=== PATIENT | male | born 1970 | race American Indian/Alaskan Native ===

== ENCOUNTER 2017-01-04 10:48 | Emergency (ER) | payer MEDICAID ==
--- NOTE | 2017-01-04 11:36 | Emergency Department Report ---
Chief Complaint: Eye Problems Stated Complaint: EYE INFECTION Time Seen by Provider: 01/04/17 11:36 - HPI History of Present Illness: Patient reports that he has been having eye pain and irritation times one week with drainage. He reports pain is 10 out of 10 and throbbing. Denies any trauma tonight. Denies any use of contacts. Denies remembering any thing get any in his eyes. He says that he is having some difficult seeing and this is to his left thigh and now going to his right eye. Patient states that he thinks he has eye infection. - ROS Review of Systems: All systems are negative unless stated in HPI above - Exam Vital Signs: Vital Signs 01/04/17 11:22 Temperature 98 F Pulse Rate 83 Blood Pressure 145/94 O2 Sat by Pulse 99 Oximetry Respirations at 17 Physical Exam: Gen.: This is a 46-year-old male well-nourished well-developed in no acute distress. Eyes: Visual acuity is 20/30 right eye, 20/70 left eye and 2070 both eyes. Bilateral conjunctiva injected left forced and right. Bilateral pupils equal and reactive to light. Noted drainage from both eyes. Left eye is worse than right eye. Hyperema noted to left eye. MSE screening note: Focused history and physical exam performed. Due to findings the following was ordered:See MDM ED Medical Decision Making - Medical Decision Making MDM: Patient screened by provider in triage area. Appropriate protocol initiated and patient to be seen in main ED provider ED Disposition for MSE Condition: Stable
[2017-01-04 13:14] LABS: Alanine Aminotransferase 24 units/L (7-56); Albumin 4.2 g/dL (3.9-5); Albumin/Globulin Ratio 1.3 %; Alkaline Phosphatase 70 units/L (35-129); Anion Gap 15 mmol/L; BUN/Creatinine Ratio 8; Blood Urea Nitrogen 7 mg/dL (9-20); Calcium 9.1 mg/dL (8.4-10.2); Carbon Dioxide 26 mmol/L (22-30); Chloride 105.2 mmol/L (98-107); Glucose 97 mg/dL (75-100); Potassium 4.4 mmol/L (3.6-5.0); Sodium 142 mmol/L (137-145); Total Protein 7.4 g/dL (6.3-8.2)
[2017-01-04 13:28] LABS: Basophils % (Auto) 0.6 % (0.0-1.8); Eosinophils % (Auto) 0.8 % (0.0-4.3); Hematocrit 43.1 % (35.5-45.6); Hemoglobin 14.1 gm/dl (11.8-15.2); Mean Corpuscular HGB Conc 33 % (32-34); Mean Corpuscular Hemoglobin 28 pg (28-32); Mean Corpuscular Volume 87 fl (84-94); Platelet Count 222 K/mm3 (140-440); Red Blood Count 4.97 M/mm3 (3.65-5.03); Red Cell Distribution Width 13.8 % (13.2-15.2); White Blood Count 3.5 K/mm3 (4.5-11.0)
[2017-01-04] MEDS ORDERED: FUL-GLO OP ONE ×2 (13:39→14:19)
[2017-01-04] MEDS ORDERED: TETRACAINE 0.5% OU ONE (13:39)
--- NOTE | 2017-01-04 13:40 | Emergency Department Report ---
ED Eye Problem HPI - General Chief complaint: Eye Problems Stated complaint: EYE INFECTION Time Seen by Provider: 01/04/17 11:36 Source: patient Mode of arrival: Ambulatory Limitations: No Limitations - History of Present Illness Initial comments: 46-year-old male with past medical history pots disease, hypertension presents with 1 week of worsening redness and inflammation bilateral eyes worsen the left than the right. States he has significant drainage and significant blurry vision from both eyes but worse on the left than right. Patient has visible purulent drainage and swelling around left eye. Left eye significantly red, swollen and patient states he has had greenish yellowish discharge worse in left and right. Denies nausea vomiting. Positive photophobia bilaterally. Patient is awake alert and oriented 3 appears uncomfortable but nontoxic otherwise. Denies any direct trauma to the eye. MD chief complaint: eye pain, eye redness Onset/Timin -: week(s) Location: left eye (left eye signficantly inflamed), both eyes Eye Symptoms: burning, redness, pain Severity: moderate Severity scale (0 -10): 7 If Pain, Quality: burning, aching Consistency: constant Associated Symptoms: none Treatments Prior to Arrival: none - Related Data Patient Tetanus UTD: No Home Medications Medication Instructions Recorded Confirmed Last Taken Albuterol Sulfate [Ventolin HFA] 2 puff IH Q4H PRN 03/12/15 02/06/16 3 Days Ago Benztropine [Cogentin] 2 mg PO BID 03/12/15 02/06/16 1 Month Ago Haloperidol Lactate [Haldol] 100 mg IM QMONTH 03/12/15 02/06/16 02/08/15 Oxycodone HCl/Acetaminophen 1 each PO Q4HR PRN 03/12/15 02/06/16 3 Weeks Ago [Percocet 10/325 mg] Previous Rx's Medication Instructions Recorded Last Taken Type ALBUTEROL Inhaler [ProAir HFA 2 puff IH QID PRN #1 inhalation 02/06/16 Unknown Rx Inhaler] Acetaminophen/Codeine [Tylenol #3] 1 tab PO Q8HR PRN #10 tab 02/15/16 Unknown Rx amLODIPine [Norvasc] 10 mg PO DAILY #30 tab 02/15/16 Unknown Rx Allergies Allergy/AdvReac Type Severity Reaction Status Date / Time aspirin Allergy Swelling Verified 02/06/16 09:30 Penicillins Allergy Swelling Verified 02/06/16 09:30 ED Review of Systems ROS: Stated complaint: EYE INFECTION Other details as noted in HPI Constitutional: denies: chills, fever Eyes: eye pain (1 week of blurry vision bilateral eye pain and swelling of left eye), eye discharge, vision change ENT: denies: ear pain, throat pain Respiratory: denies: cough, shortness of breath, wheezing Cardiovascular: denies: chest pain, palpitations Endocrine: no symptoms reported Gastrointestinal: denies: abdominal pain, nausea, diarrhea Genitourinary: denies: urgency, dysuria Musculoskeletal: denies: back pain, joint swelling, arthralgia Skin: denies: rash, lesions Neurological: denies: headache, weakness, paresthesias Psychiatric: denies: anxiety, depression Hematological/Lymphatic: denies: easy bleeding, easy bruising ED Past Medical Hx - Past Medical History Hx Hypertension: Yes Hx Psychiatric Treatment: Yes (bipolar) Hx Asthma: Yes Additional medical history: TB. spinal abcess. SAHNI DISEASE - Surgical History Additional Surgical History: chest tube. drain placed for spinal abcess - Social History Smoking Status: Current Every Day Smoker Substance Use Type: None - Medications Home Medications: Home Medications Medication Instructions Recorded Confirmed Last Taken Type Albuterol Sulfate [Ventolin HFA] 2 puff IH Q4H PRN 03/12/15 02/06/16 3 Days Ago History Benztropine [Cogentin] 2 mg PO BID 03/12/15 02/06/16 1 Month Ago History Haloperidol Lactate [Haldol] 100 mg IM QMONTH 03/12/15 02/06/16 02/08/15 History Oxycodone HCl/Acetaminophen 1 each PO Q4HR PRN 03/12/15 02/06/16 3 Weeks Ago History [Percocet 10/325 mg] ALBUTEROL Inhaler [ProAir HFA 2 puff IH QID PRN #1 inhalation 02/06/16 Unknown Rx Inhaler] Acetaminophen/Codeine [Tylenol #3] 1 tab PO Q8HR PRN #10 tab 02/15/16 Unknown Rx amLODIPine [Norvasc] 10 mg PO DAILY #30 tab 02/15/16 Unknown Rx ED Physical Exam - General Limitations: No Limitations General appearance: alert, in no apparent distress - Head Head exam: Present: atraumatic, normocephalic - Eye Eye exam: Present: periorbital swelling (left periorbital swelling, left periorbital tenderness) Pupils: Present: irregular - Expanded Eye Exam Expanded Eyelids: Swelling: Left Pupils: Regular, Round: Right Sclera/Conjunctival: Injection: Bilateral (it and injection of left conjunctiva) , Hemorrhage: Bilateral (significant chemosis and injection of the left eye slight on the right), Exudate: Bilateral (significant yellow purulent exudates both eyes) Anterior chamber: Normal Inspection: Bilateral Visual acuity (R) = 20/: 40 Visual acuity (L) = 20/: 200 IOP (R) in mmH IOP (L) in mmH IOP measured with: Tonopen - ENT ENT exam: Present: mucous membranes moist - Neck Neck exam: Present: normal inspection, full ROM - Respiratory Respiratory exam: Present: normal lung sounds bilaterally. Absent: respiratory distress - Cardiovascular Cardiovascular Exam: Present: regular rate, normal rhythm. Absent: systolic murmur, diastolic murmur, rubs, gallop - GI/Abdominal GI/Abdominal exam: Present: soft, normal bowel sounds - Rectal Rectal exam: Present: deferred - Extremities Exam Extremities exam: Present: normal inspection - Back Exam Back exam: Present: normal inspection - Neurological Exam Neurological exam: Present: alert, oriented X3 - Psychiatric Psychiatric exam: Present: normal affect, normal mood - Skin Skin exam: Present: warm, dry, intact, normal color. Absent: rash ED Course Vital Signs 01/04/17 01/04/17 01/04/17 11:22 18:46 19:17 Temperature 98 F Pulse Rate 83 72 Respiratory 20 20 Rate Blood Pressure 145/94 Blood Pressure 130/97 [Right] O2 Sat by Pulse 99 100 Oximetry ED Medical Decision Making - Lab Data Result diagrams: 01/04/17 12:40 01/04/17 12:40 - Medical Decision Making A/P: Severe preseptal cellulitis left eye 1-patient treated empirically with clindamycin 900 mg IV 2-discussed case with ophthalmology consultation avionics electrical engineer , patient to be transferred for emergent ophthalmological evaluation as his vision is significantly impaired in his left eye 3-Dr. Bourne also examined pt 4- intraocular pressure 15 ,15,16 right eye, 17 ,17,15 left eye. Vision 20/40 right eye, 20/200 left eye, 20/70 bilaterally 5- patient transferred to [place] for ophthalmology evaluation via EMS Critical care attestation.: If time is entered above; I have spent that time in minutes in the direct care of this critically ill patient, excluding procedure time. ED Disposition Clinical Impression: Preseptal cellulitis of left eye, Blurry vision, bilateral Conjunctivitis Qualifiers: Conjunctivitis type: acute Acute conjunctivitis type: bacterial Laterality: bilateral Qualified Code(s): H10.33 - Unspecified acute conjunctivitis, bilateral Disposition: DC/TX-70 ANOTHER TYPE HLTHCARE Is pt being admited?: No Does the pt Need Aspirin: No Condition: Stable Referrals: PRIMARY CARE, [Primary Care Provider] - 3-5 Days
[2017-01-04 13:43] LABS: INR 1.04 (0.87-1.13)
[2017-01-04 13:49] LABS: Partial Thromboplastin Time 30.5 Sec. (24.2-36.6)
[2017-01-04] MEDS ORDERED: BSS ONE (14:20)
[2017-01-04] MEDS ORDERED: TETRACAINE 0.5% ONE (14:20)
[2017-01-04] MEDS ORDERED: NACL 0.9% 500 ML 500 ML IV ONE (14:43)
[2017-01-04] MEDS ORDERED: MORPHINE IV ONE (14:44)
[2017-01-04] MEDS ORDERED: ZOFRAN ODT PO ONE (16:41)
[2017-01-04] MEDS ORDERED: CLEOCIN 900 MG/50 mL 900 MG/50 ML BAG IV ONE (17:00)
--- NOTE | 2017-01-04 17:32 | Cat Scan Report ---
FINAL REPORT EXAM: CT ORBIT/EAR/FOSSA W CON HISTORY: ? L-side orbital abscess, significant eye swelling TECHNIQUE: Serial axial images through the orbits during intravenous administration of 100 milliliters Omni 300 contrast with coronal and sagittal reconstruction PRIORS: None. FINDINGS: Hypodense foci are seen in the periventricular white matter of right cerebral hemisphere. Lateral ventricles are normal in size and configuration. Focal polypoid mucosal thickening is seen in the maxillary sinuses. The paranasal sinuses and mastoid air cells otherwise appear well aerated. Sequelae from prior left nasal bone fracture are noted. There is soft tissue swelling in the left periorbital region with stranding in the subcutaneous fat. No inflammatory changes or drainable fluid collections are seen in the postseptal soft tissues of the left orbit. IMPRESSION: 1. No drainable fluid collection is identified to definitely suggest abscess at this time. Asymmetric soft tissue swelling is seen in the left periorbital region with inflammatory changes, consistent with preseptal cellulitis. No inflammatory changes are seen in the postseptal soft tissues of the left orbit at this time.
[2017-01-04 19:18] VITALS: BP 130/97
== END 2017-01-04 19:30 | disposition other institution (70) ==
LOC: ED 10:48
DX: L03.213 Periorbital cellulitis (principal); H53.8 Other visual disturbances; I10 Essential (primary) hypertension; J45.909 Unspecified asthma, uncomplicated; F31.9 Bipolar disorder, unspecified
CPT/HCPCS: 36415; 70481; 80053; 82140; 85025; 85610; 85730; 96365; 96375; 99285; J2270; J7040; Q9967; Q0162

== ENCOUNTER 2020-09-15 05:37 | Emergency (ER) | payer MEDICAID, OTHER, SELFPAY ==
[2020-09-15 07:45] LABS: Basophils # (Auto) 0.1 K/mm3 (0.0-0.1); Basophils % (Auto) 1.5 % (0.0-1.8); Eosinophils % (Auto) 0.2 % (0.0-4.3); Hematocrit 41.6 % (35.5-45.6); Lymphocytes # (Auto) 1.4 K/mm3 (1.2-5.4); Lymphocytes % (Auto) 27.3 % (13.4-35.0); Mean Corpuscular HGB Conc 34 % (32-34); Mean Corpuscular Volume 88 fl (84-94); Monocytes # (Auto) 0.4 K/mm3 (0.0-0.8); Monocytes % (Auto) 8.1 % (0.0-7.3); Platelet Count 294 K/mm3 (140-440); Red Blood Count 4.71 M/mm3 (3.65-5.03)
[2020-09-15 08:11] LABS: BUN/Creatinine Ratio 10; Blood Urea Nitrogen 9 mg/dL (9-20); Calcium 8.7 mg/dL (8.4-10.2); Hemolysis Index 4
[2020-09-15 08:32] LABS: Bilirubin,Urine NEG (Negative); Blood,Urine NEG (Negative); Color,Urine Yellow (Yellow); Mucus,Urine FEW /HPF; Protein,Urine <15 mg/dL mg/dL (Negative); Urobilinogen,Urine < 2.0 mg/dL (<2.0)
[2020-09-15 08:33] LABS: Amphetamine Screen,Urine Negative; Benzodiazepines Screen,Urine Negative; Cannabinoid Screen,Urine Negative; Methadone Screen,Urine Negative; Opiate Screen,Urine Negative
[2020-09-15 08:46] LABS: Cocaine Screen,Urine Positive
--- NOTE | 2020-09-15 08:50 | Emergency Department Report ---
HPI - General Chief Complaint: Psych Time Seen by Provider: 09/15/20 08:15 - HPI HPI: This is a 49-year-old -[place] male, with a history of schizoaffective disorder and hypertension, who presents to the emergency department for a mental health evaluation. The patient says that "people are trying to kill me." He says that he sees them in the room, and "in the ceiling." The patient also has auditory hallucinations that are telling him to "kill myself." The patient does admit to some suicidal ideations. He says that he has been noncompliant with any medication since he got out of [facility] this past March, about 6 months ago. He denies any homicidal ideations. The patient is unaware of what medications he was previously on. He does not have a primary care physician or psychiatrist. ED Past Medical Hx - Past Medical History Hx Hypertension: Yes Hx Psychiatric Treatment: Yes (bipolar) Hx Asthma: Yes Additional medical history: TB. spinal abcess. SAHNI DISEASE - Surgical History Additional Surgical History: chest tube. drain placed for spinal abcess - Social History Smoking Status: Current Every Day Smoker Substance Use Type: Alcohol, Cocaine - Medications Home Medications: Home Medications Medication Instructions Recorded Confirmed Last Taken Type Albuterol Sulfate [Ventolin HFA] 2 puff IH Q4H PRN 03/12/15 02/06/16 3 Days Ago History ~03/09/15 Benztropine [Cogentin] 2 mg PO BID 03/12/15 02/06/16 1 Month Ago History ~02/10/15 Haloperidol Lactate [Haldol] 100 mg IM QMONTH 03/12/15 02/06/16 02/08/15 History Oxycodone HCl/Acetaminophen 1 each PO Q4HR PRN 03/12/15 02/06/16 3 Weeks Ago History [Percocet 10/325 mg] ~02/19/15 Albuterol Mdi (or & Nicu Only) 2 puff IH QID PRN #1 inhalation 02/06/16 Unknown Rx [ProAir HFA Inhaler] Acetaminophen/Codeine [Tylenol #3] 1 tab PO Q8HR PRN #10 tab 02/15/16 Unknown Rx amLODIPine [Norvasc] 10 mg PO DAILY #30 tab 02/15/16 Unknown Rx ED Review of Systems ROS: Stated complaint: HEARING VOICES Other details as noted in HPI Comment: All other systems reviewed and negative Constitutional: denies: chills, fever Eyes: denies: eye pain, vision change ENT: denies: ear pain, throat pain Respiratory: denies: cough, shortness of breath Cardiovascular: denies: chest pain, palpitations Gastrointestinal: denies: abdominal pain, vomiting Musculoskeletal: denies: back pain, arthralgia Neurological: denies: headache, weakness Psychiatric: auditory hallucinations, visual hallucinations, suicidal thoughts Physical Exam - Physical Exam Vital Signs: Vital Signs 09/15/20 07:19 Temperature 98.2 F Pulse Rate 100 H Respiratory 20 Rate Blood Pressure 193/109 O2 Sat by Pulse 97 Oximetry Physical Exam: GENERAL: The patient is well-developed well-nourished. HENT: Normocephalic. Atraumatic. Patient has moist mucous membranes. EYES: Extraocular motions are intact. NECK: Supple. Trachea is midline. CHEST/LUNGS: Clear to auscultation. There is no respiratory distress noted. HEART/CARDIOVASCULAR: Regular. There is no tachycardia. There is no murmur. ABDOMEN: Abdomen is soft, nontender. Patient has normal bowel sounds. SKIN: Skin is warm and dry. NEURO: The patient is awake, alert, and oriented. The patient is cooperative. Normal speech. MUSCULOSKELETAL: There is no tenderness or deformity. There is no limitation range of motion. ED Course Vital Signs 09/15/20 07:19 Temperature 98.2 F Pulse Rate 100 H Respiratory 20 Rate Blood Pressure 193/109 O2 Sat by Pulse 97 Oximetry ED Medical Decision Making - Lab Data Result diagrams: 09/15/20 07:41 09/15/20 07:41 Lab Results 09/15/20 09/15/20 09/15/20 Range/Units 07:41 07:41 07:41 WBC (4.5-11.0) K/mm3 RBC (3.65-5.03) M/mm3 Hgb (11.8-15.2) gm/dl Hct (35.5-45.6) % MCV (84-94) fl MCH (28-32) pg MCHC (32-34) % RDW (13.2-15.2) % Plt Count (140-440) K/mm3 Lymph % (Auto) (13.4-35.0) % [place] % (Auto) (0.0-7.3) % Eos % (Auto) (0.0-4.3) % Baso % (Auto) (0.0-1.8) % Lymph # (Auto) (1.2-5.4) K/mm3 [place] # (Auto) (0.0-0.8) K/mm3 Eos # (Auto) (0.0-0.4) K/mm3 Baso # (Auto) (0.0-0.1) K/mm3 Seg Neutrophils % (40.0-70.0) % Seg Neutrophils # (1.8-7.7) K/mm3 Sodium 139 (137-145) mmol/L Potassium 3.5 L (3.6-5.0) mmol/L Chloride 103.5 (98-107) mmol/L Carbon Dioxide 22 (22-30) mmol/L Anion Gap 17 mmol/L BUN 9 (9-20) mg/dL Creatinine 0.9 (0.8-1.3) mg/dL Estimated GFR > 60 ml/min BUN/Creatinine Ratio 10 % Glucose 102 H (75-100) mg/dL Calcium 8.7 (8.4-10.2) mg/dL Urine Color (Yellow) Urine Turbidity (Clear) Urine pH (5.0-7.0) Ur Specific [place] (1.003-1.030) Urine Protein (Negative) mg/dL Urine Glucose (UA) (Negative) mg/dL Urine Ketones (Negative) mg/dL Urine Blood (Negative) Urine Nitrite (Negative) Urine Bilirubin (Negative) Urine Urobilinogen (<2.0) mg/dL Ur Leukocyte Esterase (Negative) Urine WBC (Auto) (0.0-6.0) /HPF Urine RBC (Auto) (0.0-6.0) /HPF U Epithel Cells (Auto) (0-13.0) /HPF Urine Mucus /HPF Salicylates < 0.3 L (2.8-20.0) mg/dL Urine Opiates Screen Urine Methadone Screen Acetaminophen 5.0 L (10.0-30.0) ug/mL Ur Barbiturates Screen Ur Phencyclidine Scrn Ur Amphetamines Screen U Benzodiazepines Scrn Urine Cocaine Screen U Marijuana (THC) Screen Drugs of Abuse Note Plasma/Serum Alcohol (0-0.07) % 06/13/21 06/13/21 06/13/21 Range/Units 07:41 07:41 Unknown WBC 5.0 (4.5-11.0) K/mm3 RBC 4.71 (3.65-5.03) M/mm3 Hgb 14.0 (11.8-15.2) gm/dl Hct 41.6 (35.5-45.6) % MCV 88 (84-94) fl MCH 30 (28-32) pg MCHC 34 (32-34) % RDW 14.0 (13.2-15.2) % Plt Count 294 (140-440) K/mm3 Lymph % (Auto) 27.3 (13.4-35.0) % [place] % (Auto) 8.1 H (0.0-7.3) % Eos % (Auto) 0.2 (0.0-4.3) % Baso % (Auto) 1.5 (0.0-1.8) % Lymph # (Auto) 1.4 (1.2-5.4) K/mm3 [place] # (Auto) 0.4 (0.0-0.8) K/mm3 Eos # (Auto) 0.0 (0.0-0.4) K/mm3 Baso # (Auto) 0.1 (0.0-0.1) K/mm3 Seg Neutrophils % 62.9 (40.0-70.0) % Seg Neutrophils # 3.2 (1.8-7.7) K/mm3 Sodium (137-145) mmol/L Potassium (3.6-5.0) mmol/L Chloride (98-107) mmol/L Carbon Dioxide (22-30) mmol/L Anion Gap mmol/L BUN (9-20) mg/dL Creatinine (0.8-1.3) mg/dL Estimated GFR ml/min BUN/Creatinine Ratio % Glucose (75-100) mg/dL Calcium (8.4-10.2) mg/dL Urine Color Yellow (Yellow) Urine Turbidity Slightly-cloudy (Clear) Urine pH 5.0 (5.0-7.0) Ur Specific [place] 1.011 (1.003-1.030) Urine Protein <15 mg/dl (Negative) mg/dL Urine Glucose (UA) Neg (Negative) mg/dL Urine Ketones Neg (Negative) mg/dL Urine Blood Neg (Negative) Urine Nitrite Neg (Negative) Urine Bilirubin Neg (Negative) Urine Urobilinogen < 2.0 (<2.0) mg/dL Ur Leukocyte Esterase Neg (Negative) Urine WBC (Auto) 1.0 (0.0-6.0) /HPF Urine RBC (Auto) 1.0 (0.0-6.0) /HPF U Epithel Cells (Auto) < 1.0 (0-13.0) /HPF Urine Mucus Few /HPF Salicylates (2.8-20.0) mg/dL Urine Opiates Screen Urine Methadone Screen Acetaminophen (10.0-30.0) ug/mL Ur Barbiturates Screen Ur Phencyclidine Scrn Ur Amphetamines Screen U Benzodiazepines Scrn Urine Cocaine Screen U Marijuana (THC) Screen Drugs of Abuse Note Plasma/Serum Alcohol 0.15 H (0-0.07) % 09/15/20 Range/Units Unknown WBC (4.5-11.0) K/mm3 RBC (3.65-5.03) M/mm3 Hgb (11.8-15.2) gm/dl Hct (35.5-45.6) % MCV (84-94) fl MCH (28-32) pg MCHC (32-34) % RDW (13.2-15.2) % Plt Count (140-440) K/mm3 Lymph % (Auto) (13.4-35.0) % [place] % (Auto) (0.0-7.3) % Eos % (Auto) (0.0-4.3) % Baso % (Auto) (0.0-1.8) % Lymph # (Auto) (1.2-5.4) K/mm3 [place] # (Auto) (0.0-0.8) K/mm3 Eos # (Auto) (0.0-0.4) K/mm3 Baso # (Auto) (0.0-0.1) K/mm3 Seg Neutrophils % (40.0-70.0) % Seg Neutrophils # (1.8-7.7) K/mm3 Sodium (137-145) mmol/L Potassium (3.6-5.0) mmol/L Chloride (98-107) mmol/L Carbon Dioxide (22-30) mmol/L Anion Gap mmol/L BUN (9-20) mg/dL Creatinine (0.8-1.3) mg/dL Estimated GFR ml/min BUN/Creatinine Ratio % Glucose (75-100) mg/dL Calcium (8.4-10.2) mg/dL Urine Color (Yellow) Urine Turbidity (Clear) Urine pH (5.0-7.0) Ur Specific [place] (1.003-1.030) Urine Protein (Negative) mg/dL Urine Glucose (UA) (Negative) mg/dL Urine Ketones (Negative) mg/dL Urine Blood (Negative) Urine Nitrite (Negative) Urine Bilirubin (Negative) Urine Urobilinogen (<2.0) mg/dL Ur Leukocyte Esterase (Negative) Urine WBC (Auto) (0.0-6.0) /HPF Urine RBC (Auto) (0.0-6.0) /HPF U Epithel Cells (Auto) (0-13.0) /HPF Urine Mucus /HPF Salicylates (2.8-20.0) mg/dL Urine Opiates Screen Negative Urine Methadone Screen Negative Acetaminophen (10.0-30.0) ug/mL Ur Barbiturates Screen Negative Ur Phencyclidine Scrn Negative Ur Amphetamines Screen Negative U Benzodiazepines Scrn Negative Urine Cocaine Screen Positive U Marijuana (THC) Screen Negative Drugs of Abuse Note Disclamer Plasma/Serum Alcohol (0-0.07) % - Medical Decision Making This patient presents to the emergency department for a mental health evaluation. He has been having paranoid delusions, command hallucinations and some suicidal ideations. For these reasons the patient has been made a 1013 and placed on an ED hold. Labs have been mostly unremarkable except for a blood alcohol level of 0.14 and a urine drug screen positive for cocaine. He does not appear acutely intoxicated. Patient presents with some hypertension for which she has a history. He was given a dose of amlodipine. He does not know any medications that he is on and therefore I am unable to reconcile the medications at this time. He was seen by the psychiatric nurse practitioner who agrees with the plan for inpatient stabilization. Patient is medically cleared for psychiatric placement. Critical Care Time: No Critical care attestation.: If time is entered above; I have spent that time in minutes in the direct care of this critically ill patient, excluding procedure time. ED Disposition Clinical Impression: Medical clearance for psychiatric admission, History of command hallucinations, Suicidal ideations, Paranoid delusion Hypertension Qualifiers: Hypertension type: essential hypertension Qualified Code(s): I10 - Essential ( primary) hypertension Schizoaffective disorder Qualifiers: Schizoaffective disorder type: unspecified Qualified Code(s): F25.9 - Schizoaffective disorder, unspecified Disposition: DC/TX-65 PSY HOSP/PSY UNIT Is pt being admited?: No Condition: Stable Instructions: Hypertension (ED) Time of Disposition: 11:14
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
[2020-09-15] MEDS ORDERED: amLODIPine 5 MG TAB PO ONE (11:09)
[2020-09-16] MEDS ORDERED: HALOPERIDOL LACTATE 5 MG/1 ML INJ IM PRN (10:42)
[2020-09-16] MEDS ORDERED: diphenhydrAMINE 25 MG CAP PO PRN (10:42)
[2020-09-16] MEDS ORDERED: LORazepam 2 MG/ML VIAL IM PRN (10:42)
[2020-09-16] MEDS ORDERED: ALBUTEROL 8.5 GM MDI INHALATION IH PRN ×2 (10:42)
[2020-09-16] MEDS ORDERED: ONDANSETRON 4 MG ODT TAB PO PRN (10:43)
--- NOTE | 2020-09-16 10:45 | Event Note ---
Date: 09/16/20 The patient was evaluated in the emergency department for symptoms described in the history of present illness. He/she was evaluated in the context of the global COVID-19 pandemic, which necessitated consideration that the patient might be at risk for infection with the virus that causes COVID-19. Institutional protocols and algorithms that pertain to the evaluation of patients at risk for COVID-19 are in a state of rapid change based on information released by regulatory bodies including the CDC and federal and state organizations. These policies and algorithms were followed during the patient's care in the emergency department. Please note that these policies, procedures and recommendations changed on a rapid basis. Patient resting comfortably in stretcher, and in no acute distress. Appears that he was medically cleared on his initial ER evaluation. Laboratory studies, radiology studies, initial ER documentation reviewed and appreciated, nursing documentation reviewed and appreciated, psychiatric recommendations reviewed and appreciated nursing team endorses no acute events this morning. Patient does not appear to have an immediate medical contraindication at this time that would preclude psychiatric evaluation, consultation, placement and disposition. Vital Signs 09/15/20 09/15/20 09/15/20 07:19 09:13 19:58 Temperature 98.2 F 97.7 F 98.7 F Pulse Rate 100 H 93 H 82 Respiratory 20 20 20 Rate Blood Pressure 193/109 155/89 Blood Pressure 165/94 [Right] O2 Sat by Pulse 97 97 97 Oximetry 09/15/20 09/16/20 09/16/20 20:31 02:29 08:36 Temperature 98.3 F 98.1 F 98.2 F Pulse Rate 62 66 74 Respiratory 16 16 18 Rate Blood Pressure Blood Pressure 154/98 145/82 153/71 [Right] O2 Sat by Pulse 100 100 99 Oximetry Lab Results 09/15/20 09/15/20 09/15/20 Range/Units 07:41 07:41 07:41 WBC (4.5-11.0) K/mm3 RBC (3.65-5.03) M/mm3 Hgb (11.8-15.2) gm/dl Hct (35.5-45.6) % MCV (84-94) fl MCH (28-32) pg MCHC (32-34) % RDW (13.2-15.2) % Plt Count (140-440) K/mm3 Lymph % (Auto) (13.4-35.0) % [place] % (Auto) (0.0-7.3) % Eos % (Auto) (0.0-4.3) % Baso % (Auto) (0.0-1.8) % Lymph # (Auto) (1.2-5.4) K/mm3 [place] # (Auto) (0.0-0.8) K/mm3 Eos # (Auto) (0.0-0.4) K/mm3 Baso # (Auto) (0.0-0.1) K/mm3 Seg Neutrophils % (40.0-70.0) % Seg Neutrophils # (1.8-7.7) K/mm3 Sodium 139 (137-145) mmol/L Potassium 3.5 L (3.6-5.0) mmol/L Chloride 103.5 (98-107) mmol/L Carbon Dioxide 22 (22-30) mmol/L Anion Gap 17 mmol/L BUN 9 (9-20) mg/dL Creatinine 0.9 (0.8-1.3) mg/dL Estimated GFR > 60 ml/min BUN/Creatinine Ratio 10 % Glucose 102 H (75-100) mg/dL Calcium 8.7 (8.4-10.2) mg/dL Urine Color (Yellow) Urine Turbidity (Clear) Urine pH (5.0-7.0) Ur Specific [place] (1.003-1.030) Urine Protein (Negative) mg/dL Urine Glucose (UA) (Negative) mg/dL Urine Ketones (Negative) mg/dL Urine Blood (Negative) Urine Nitrite (Negative) Urine Bilirubin (Negative) Urine Urobilinogen (<2.0) mg/dL Ur Leukocyte Esterase (Negative) Urine WBC (Auto) (0.0-6.0) /HPF Urine RBC (Auto) (0.0-6.0) /HPF U Epithel Cells (Auto) (0-13.0) /HPF Urine Mucus /HPF Salicylates < 0.3 L (2.8-20.0) mg/dL Urine Opiates Screen Urine Methadone Screen Acetaminophen 5.0 L (10.0-30.0) ug/mL Ur Barbiturates Screen Ur Phencyclidine Scrn Ur Amphetamines Screen U Benzodiazepines Scrn Urine Cocaine Screen U Marijuana (THC) Screen Drugs of Abuse Note Plasma/Serum Alcohol (0-0.07) % Coronavirus (PCR) (Negative) 09/15/20 09/15/20 09/15/20 Range/Units 07:41 07:41 08:50 WBC 5.0 (4.5-11.0) K/mm3 RBC 4.71 (3.65-5.03) M/mm3 Hgb 14.0 (11.8-15.2) gm/dl Hct 41.6 (35.5-45.6) % MCV 88 (84-94) fl MCH 30 (28-32) pg MCHC 34 (32-34) % RDW 14.0 (13.2-15.2) % Plt Count 294 (140-440) K/mm3 Lymph % (Auto) 27.3 (13.4-35.0) % [place] % (Auto) 8.1 H (0.0-7.3) % Eos % (Auto) 0.2 (0.0-4.3) % Baso % (Auto) 1.5 (0.0-1.8) % Lymph # (Auto) 1.4 (1.2-5.4) K/mm3 [place] # (Auto) 0.4 (0.0-0.8) K/mm3 Eos # (Auto) 0.0 (0.0-0.4) K/mm3 Baso # (Auto) 0.1 (0.0-0.1) K/mm3 Seg Neutrophils % 62.9 (40.0-70.0) % Seg Neutrophils # 3.2 (1.8-7.7) K/mm3 Sodium (137-145) mmol/L Potassium (3.6-5.0) mmol/L Chloride (98-107) mmol/L Carbon Dioxide (22-30) mmol/L Anion Gap mmol/L BUN (9-20) mg/dL Creatinine (0.8-1.3) mg/dL Estimated GFR ml/min BUN/Creatinine Ratio % Glucose (75-100) mg/dL Calcium (8.4-10.2) mg/dL Urine Color (Yellow) Urine Turbidity (Clear) Urine pH (5.0-7.0) Ur Specific [place] (1.003-1.030) Urine Protein (Negative) mg/dL Urine Glucose (UA) (Negative) mg/dL Urine Ketones (Negative) mg/dL Urine Blood (Negative) Urine Nitrite (Negative) Urine Bilirubin (Negative) Urine Urobilinogen (<2.0) mg/dL Ur Leukocyte Esterase (Negative) Urine WBC (Auto) (0.0-6.0) /HPF Urine RBC (Auto) (0.0-6.0) /HPF U Epithel Cells (Auto) (0-13.0) /HPF Urine Mucus /HPF Salicylates (2.8-20.0) mg/dL Urine Opiates Screen Urine Methadone Screen Acetaminophen (10.0-30.0) ug/mL Ur Barbiturates Screen Ur Phencyclidine Scrn Ur Amphetamines Screen U Benzodiazepines Scrn Urine Cocaine Screen U Marijuana (THC) Screen Drugs of Abuse Note Plasma/Serum Alcohol 0.15 H (0-0.07) % Coronavirus (PCR) Negative (Negative) 09/15/20 09/15/20 Range/Units Unknown Unknown WBC (4.5-11.0) K/mm3 RBC (3.65-5.03) M/mm3 Hgb (11.8-15.2) gm/dl Hct (35.5-45.6) % MCV (84-94) fl MCH (28-32) pg MCHC (32-34) % RDW (13.2-15.2) % Plt Count (140-440) K/mm3 Lymph % (Auto) (13.4-35.0) % [place] % (Auto) (0.0-7.3) % Eos % (Auto) (0.0-4.3) % Baso % (Auto) (0.0-1.8) % Lymph # (Auto) (1.2-5.4) K/mm3 [place] # (Auto) (0.0-0.8) K/mm3 Eos # (Auto) (0.0-0.4) K/mm3 Baso # (Auto) (0.0-0.1) K/mm3 Seg Neutrophils % (40.0-70.0) % Seg Neutrophils # (1.8-7.7) K/mm3 Sodium (137-145) mmol/L Potassium (3.6-5.0) mmol/L Chloride (98-107) mmol/L Carbon Dioxide (22-30) mmol/L Anion Gap mmol/L BUN (9-20) mg/dL Creatinine (0.8-1.3) mg/dL Estimated GFR ml/min BUN/Creatinine Ratio % Glucose (75-100) mg/dL Calcium (8.4-10.2) mg/dL Urine Color Yellow (Yellow) Urine Turbidity Slightly-cloudy (Clear) Urine pH 5.0 (5.0-7.0) Ur Specific [place] 1.011 (1.003-1.030) Urine Protein <15 mg/dl (Negative) mg/dL Urine Glucose (UA) Neg (Negative) mg/dL Urine Ketones Neg (Negative) mg/dL Urine Blood Neg (Negative) Urine Nitrite Neg (Negative) Urine Bilirubin Neg (Negative) Urine Urobilinogen < 2.0 (<2.0) mg/dL Ur Leukocyte Esterase Neg (Negative) Urine WBC (Auto) 1.0 (0.0-6.0) /HPF Urine RBC (Auto) 1.0 (0.0-6.0) /HPF U Epithel Cells (Auto) < 1.0 (0-13.0) /HPF Urine Mucus Few /HPF Salicylates (2.8-20.0) mg/dL Urine Opiates Screen Negative Urine Methadone Screen Negative Acetaminophen (10.0-30.0) ug/mL Ur Barbiturates Screen Negative Ur Phencyclidine Scrn Negative Ur Amphetamines Screen Negative U Benzodiazepines Scrn Negative Urine Cocaine Screen Positive U Marijuana (THC) Screen Negative Drugs of Abuse Note Disclamer Plasma/Serum Alcohol (0-0.07) % Coronavirus (PCR) (Negative)
[2020-09-17] MEDS: amLODIPine 10 MG TAB PO SCH (09:50)
[2020-09-17] MEDS: ACETAMINOPHEN 325 MG TAB PO PRN ×2 (10:21→19:03)
--- NOTE | 2020-09-17 11:10 | Progress Note ---
Subjective - Reason for Consult Consult date: 09/17/20 Reason for consult: MHE Requesting physician: JADA LEMUS - Chief Complaint Chief complaint: Psych Progress Patient seen this AM, reports having pain wanting pain meds, still endorse SI and hearing voices REVIEW OF SYSTEMS Constitutional: Negative for weight loss ENT: Negative for stridor Respiratory: Negative for cough or hemoptysis All other systems reviewed and are negative MENTAL STATUS EXAMINATION General Appearance and Behavior: Age appropriate, good hygiene, wearing appropriate clothes, poor eye contact, cooperativeirritable with questioning. Cooperation: Hostile and Guarded Psychomotor Behavior: Psychomotor normal Mood: feel bad Affect and affective range: dysthymic, Thought Process:Circumstantial, Illogical, Thought Content: Obsessions, Hallucinations including auditory, visual, Paranoid Speech: difficulty to understand, confused and blocking Intellectual Functioning: fair Suicidal Ideation: SI Homicidal Ideation: Denies HI Impulse Control: Impaired Insight and Judgment: Impaired Memory: Short term memory intact Attention: Divided attention impaired Orientation: Alert, oriented Assessment and Plan - Psychiatric problem (1) Illicit drug use Current Visit: Yes Status: Acute (2) Schizoaffective disorder Current Visit: Yes Status: Acute Treatment Plan MEDICATIONS: Risks, benefits and alternatives of medications discussed with the patient, questions answered and consent obtained from patient. PSYCHOTHERAPY: Supportive psychotherapy provided MEDICAL: Per primary team DELIRIUM PRECAUTIONS: Please re-orient patient frequently, keep lights on during the day, and minimize benzodiazepines and opiates as these medications could worsen patient's confusion. INVESTOR RELATIONS COORDINATOR: DISPOSITION: Do Recommend acute inpatient psychiatric hospitalization at this time. Case discussed with Dr. Reyna who agrees with current disposition LEGAL STATUS: 1013 FOLLOW-UP: Will follow Thank you for the consult. Please contact with any questions and/or concerns. Mental Status Exam - Vital signs Last Vital Signs Temp 98.3 F 09/17/20 08:09 Pulse 78 09/17/20 09:50 Resp 20 09/17/20 08:09 BP 150/98 09/17/20 09:50 Pulse Ox 96 09/17/20 08:09 Assessment and Plan - Patient Problems (1) Illicit drug use Current Visit: Yes Status: Acute (2) Schizoaffective disorder Current Visit: Yes Status: Acute Qualifiers: Schizoaffective disorder type: unspecified Qualified Code(s): F25.9 - Schizoaffective disorder, unspecified
--- NOTE | 2020-09-17 11:14 | Event Note ---
Date: 09/17/20 Patient taking a shower, and indicates that nothing is bothering him at this time. Nursing team endorses no acute events. Vital signs, psychiatric documentation, mental health buffing wheel raker documentation reviewed and appreciated. Patient remains medically suitable for psychiatric placement and disposition at this time. Vital Signs 09/15/20 09/15/20 09/15/20 07:19 09:13 19:58 Temperature 98.2 F 97.7 F 98.7 F Pulse Rate 100 H 93 H 82 Respiratory 20 20 20 Rate Blood Pressure 193/109 155/89 Blood Pressure 165/94 [Right] O2 Sat by Pulse 97 97 97 Oximetry 09/15/20 09/16/20 09/16/20 20:31 02:29 08:36 Temperature 98.3 F 98.1 F 98.2 F Pulse Rate 62 66 74 Respiratory 16 16 18 Rate Blood Pressure Blood Pressure 154/98 145/82 153/71 [Right] O2 Sat by Pulse 100 100 99 Oximetry 09/16/20 09/17/20 09/17/20 20:18 01:35 08:09 Temperature 98.5 F 98.5 F 98.3 F Pulse Rate 65 79 78 Respiratory 16 16 20 Rate Blood Pressure Blood Pressure 165/91 160/90 150/98 [Right] O2 Sat by Pulse 99 96 96 Oximetry 09/17/20 09:50 Temperature Pulse Rate 78 Respiratory Rate Blood Pressure 150/98 Blood Pressure [Right] O2 Sat by Pulse Oximetry Lab Results 09/15/20 09/15/20 09/15/20 Range/Units 07:41 07:41 07:41 WBC (4.5-11.0) K/mm3 RBC (3.65-5.03) M/mm3 Hgb (11.8-15.2) gm/dl Hct (35.5-45.6) % MCV (84-94) fl MCH (28-32) pg MCHC (32-34) % RDW (13.2-15.2) % Plt Count (140-440) K/mm3 Lymph % (Auto) (13.4-35.0) % [place] % (Auto) (0.0-7.3) % Eos % (Auto) (0.0-4.3) % Baso % (Auto) (0.0-1.8) % Lymph # (Auto) (1.2-5.4) K/mm3 [place] # (Auto) (0.0-0.8) K/mm3 Eos # (Auto) (0.0-0.4) K/mm3 Baso # (Auto) (0.0-0.1) K/mm3 Seg Neutrophils % (40.0-70.0) % Seg Neutrophils # (1.8-7.7) K/mm3 Sodium 139 (137-145) mmol/L Potassium 3.5 L (3.6-5.0) mmol/L Chloride 103.5 (98-107) mmol/L Carbon Dioxide 22 (22-30) mmol/L Anion Gap 17 mmol/L BUN 9 (9-20) mg/dL Creatinine 0.9 (0.8-1.3) mg/dL Estimated GFR > 60 ml/min BUN/Creatinine Ratio 10 % Glucose 102 H (75-100) mg/dL Calcium 8.7 (8.4-10.2) mg/dL Urine Color (Yellow) Urine Turbidity (Clear) Urine pH (5.0-7.0) Ur Specific [place] (1.003-1.030) Urine Protein (Negative) mg/dL Urine Glucose (UA) (Negative) mg/dL Urine Ketones (Negative) mg/dL Urine Blood (Negative) Urine Nitrite (Negative) Urine Bilirubin (Negative) Urine Urobilinogen (<2.0) mg/dL Ur Leukocyte Esterase (Negative) Urine WBC (Auto) (0.0-6.0) /HPF Urine RBC (Auto) (0.0-6.0) /HPF U Epithel Cells (Auto) (0-13.0) /HPF Urine Mucus /HPF Salicylates < 0.3 L (2.8-20.0) mg/dL Urine Opiates Screen Urine Methadone Screen Acetaminophen 5.0 L (10.0-30.0) ug/mL Ur Barbiturates Screen Ur Phencyclidine Scrn Ur Amphetamines Screen U Benzodiazepines Scrn Urine Cocaine Screen U Marijuana (THC) Screen Drugs of Abuse Note Plasma/Serum Alcohol (0-0.07) % Coronavirus (PCR) (Negative) 09/15/20 09/15/20 09/15/20 Range/Units 07:41 07:41 08:50 WBC 5.0 (4.5-11.0) K/mm3 RBC 4.71 (3.65-5.03) M/mm3 Hgb 14.0 (11.8-15.2) gm/dl Hct 41.6 (35.5-45.6) % MCV 88 (84-94) fl MCH 30 (28-32) pg MCHC 34 (32-34) % RDW 14.0 (13.2-15.2) % Plt Count 294 (140-440) K/mm3 Lymph % (Auto) 27.3 (13.4-35.0) % [place] % (Auto) 8.1 H (0.0-7.3) % Eos % (Auto) 0.2 (0.0-4.3) % Baso % (Auto) 1.5 (0.0-1.8) % Lymph # (Auto) 1.4 (1.2-5.4) K/mm3 [place] # (Auto) 0.4 (0.0-0.8) K/mm3 Eos # (Auto) 0.0 (0.0-0.4) K/mm3 Baso # (Auto) 0.1 (0.0-0.1) K/mm3 Seg Neutrophils % 62.9 (40.0-70.0) % Seg Neutrophils # 3.2 (1.8-7.7) K/mm3 Sodium (137-145) mmol/L Potassium (3.6-5.0) mmol/L Chloride (98-107) mmol/L Carbon Dioxide (22-30) mmol/L Anion Gap mmol/L BUN (9-20) mg/dL Creatinine (0.8-1.3) mg/dL Estimated GFR ml/min BUN/Creatinine Ratio % Glucose (75-100) mg/dL Calcium (8.4-10.2) mg/dL Urine Color (Yellow) Urine Turbidity (Clear) Urine pH (5.0-7.0) Ur Specific [place] (1.003-1.030) Urine Protein (Negative) mg/dL Urine Glucose (UA) (Negative) mg/dL Urine Ketones (Negative) mg/dL Urine Blood (Negative) Urine Nitrite (Negative) Urine Bilirubin (Negative) Urine Urobilinogen (<2.0) mg/dL Ur Leukocyte Esterase (Negative) Urine WBC (Auto) (0.0-6.0) /HPF Urine RBC (Auto) (0.0-6.0) /HPF U Epithel Cells (Auto) (0-13.0) /HPF Urine Mucus /HPF Salicylates (2.8-20.0) mg/dL Urine Opiates Screen Urine Methadone Screen Acetaminophen (10.0-30.0) ug/mL Ur Barbiturates Screen Ur Phencyclidine Scrn Ur Amphetamines Screen U Benzodiazepines Scrn Urine Cocaine Screen U Marijuana (THC) Screen Drugs of Abuse Note Plasma/Serum Alcohol 0.15 H (0-0.07) % Coronavirus (PCR) Negative (Negative) 09/15/20 09/15/20 Range/Units Unknown Unknown WBC (4.5-11.0) K/mm3 RBC (3.65-5.03) M/mm3 Hgb (11.8-15.2) gm/dl Hct (35.5-45.6) % MCV (84-94) fl MCH (28-32) pg MCHC (32-34) % RDW (13.2-15.2) % Plt Count (140-440) K/mm3 Lymph % (Auto) (13.4-35.0) % [place] % (Auto) (0.0-7.3) % Eos % (Auto) (0.0-4.3) % Baso % (Auto) (0.0-1.8) % Lymph # (Auto) (1.2-5.4) K/mm3 [place] # (Auto) (0.0-0.8) K/mm3 Eos # (Auto) (0.0-0.4) K/mm3 Baso # (Auto) (0.0-0.1) K/mm3 Seg Neutrophils % (40.0-70.0) % Seg Neutrophils # (1.8-7.7) K/mm3 Sodium (137-145) mmol/L Potassium (3.6-5.0) mmol/L Chloride (98-107) mmol/L Carbon Dioxide (22-30) mmol/L Anion Gap mmol/L BUN (9-20) mg/dL Creatinine (0.8-1.3) mg/dL Estimated GFR ml/min BUN/Creatinine Ratio % Glucose (75-100) mg/dL Calcium (8.4-10.2) mg/dL Urine Color Yellow (Yellow) Urine Turbidity Slightly-cloudy (Clear) Urine pH 5.0 (5.0-7.0) Ur Specific [place] 1.011 (1.003-1.030) Urine Protein <15 mg/dl (Negative) mg/dL Urine Glucose (UA) Neg (Negative) mg/dL Urine Ketones Neg (Negative) mg/dL Urine Blood Neg (Negative) Urine Nitrite Neg (Negative) Urine Bilirubin Neg (Negative) Urine Urobilinogen < 2.0 (<2.0) mg/dL Ur Leukocyte Esterase Neg (Negative) Urine WBC (Auto) 1.0 (0.0-6.0) /HPF Urine RBC (Auto) 1.0 (0.0-6.0) /HPF U Epithel Cells (Auto) < 1.0 (0-13.0) /HPF Urine Mucus Few /HPF Salicylates (2.8-20.0) mg/dL Urine Opiates Screen Negative Urine Methadone Screen Negative Acetaminophen (10.0-30.0) ug/mL Ur Barbiturates Screen Negative Ur Phencyclidine Scrn Negative Ur Amphetamines Screen Negative U Benzodiazepines Scrn Negative Urine Cocaine Screen Positive U Marijuana (THC) Screen Negative Drugs of Abuse Note Disclamer Plasma/Serum Alcohol (0-0.07) % Coronavirus (PCR) (Negative)
[2020-09-18] MEDS: ACETAMINOPHEN 325 MG TAB PO PRN (07:43)
[2020-09-18 07:50] VITALS: BP 147/88
[2020-09-18] MEDS: amLODIPine 10 MG TAB PO SCH (10:11)
--- NOTE | 2020-09-18 10:13 | Event Note ---
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
== END 2020-09-18 16:07 ==
LOC: ED 05:37
DX: Z04.6 Encounter for general psychiatric examination, requested by authority (principal); R45.851 Suicidal ideations; Z20.822 Contact with and (suspected) exposure to COVID-19; F20.9 Schizophrenia, unspecified; I10 Essential (primary) hypertension; F22 Delusional disorders; J45.909 Unspecified asthma, uncomplicated; F31.9 Bipolar disorder, unspecified; F17.200 Nicotine dependence, unspecified, uncomplicated; F14.90 Cocaine use, unspecified, uncomplicated; Z72.89 Other problems related to lifestyle; Z88.6 Allergy status to analgesic agent; Z88.0 Allergy status to penicillin; Z79.899 Other long term (current) drug therapy
CPT/HCPCS: 36415; 80048; 80307; 81001; 85025; 99284; U0003; 80320; G0480

== ENCOUNTER 2021-09-15 13:27 | Emergency (ER) | payer MEDICAID ==
[2021-09-16 05:16] LABS: Basophils # (Auto) 0.1 K/mm3 (0.0-0.1); Eosinophils # (Auto) 0.2 K/mm3 (0.0-0.4); Eosinophils % (Auto) 3.5 % (0.0-4.3); Hematocrit 37.9 % (35.5-45.6); Lymphocytes # (Auto) 1.6 K/mm3 (1.2-5.4); Lymphocytes % (Auto) 33.6 % (13.4-35.0); Mean Corpuscular HGB Conc 34 % (32-34); Mean Corpuscular Volume 88 fl (84-94); Monocytes # (Auto) 0.7 K/mm3 (0.0-0.8); Monocytes % (Auto) 14.8 % (0.0-7.3); Platelet Count 243 K/mm3 (140-440)
[2021-09-16 05:28] LABS: BUN/Creatinine Ratio 10; Blood Urea Nitrogen 8 mg/dL (9-20); Calcium 9.3 mg/dL (8.4-10.2); Hemolysis Index 2
[2021-09-16 07:27] LABS: Bilirubin,Urine NEG (Negative); Blood,Urine NEG (Negative); Color,Urine Straw (Yellow); Protein,Urine <15 mg/dL mg/dL (Negative); RBC,Urine < 1.0 /HPF (0.0-6.0); Urobilinogen,Urine < 2.0 mg/dL (<2.0)
[2021-09-16 07:29] LABS: Amphetamine Screen,Urine Negative; Benzodiazepines Screen,Urine Negative; Cannabinoid Screen,Urine Negative; Methadone Screen,Urine Negative; Opiate Screen,Urine Negative
[2021-09-16 07:37] LABS: WBC,Urine < 1.0 /HPF (0.0-6.0)
--- NOTE | 2021-09-16 07:37 | Emergency Department Report ---
ED Psych HPI - General Chief Complaint: Psych Stated Complaint: Psych Eval/SI Time Seen by Provider: 09/16/21 06:23 Source: patient Mode of arrival: Ambulatory - History of Present Illness Initial Comments: Mr. Andrade is a 50-year-old male with a history of anxiety and depression who now presents with suicidal ideation started couple of days ago progressively getting worse. Patient reports that he keep hearing words instructing him to hurt himself. He denies having any plan or method to killing himself. Patient denies any fall or trauma to the brain. Patient also mentioned that he has not been taking his medication including antihypertensive lisinopril. No other modifying or associated factors reported. - Related Data Home Medications Medication Instructions Recorded Confirmed Last Taken Albuterol Sulfate [Ventolin HFA] 2 puff IH Q4H PRN 03/12/15 07/16/21 3 Days Ago ~03/09/15 Benztropine [Cogentin] 2 mg PO BID 03/12/15 07/16/21 1 Month Ago ~02/10/15 Haloperidol Lactate [Haldol] 100 mg IM QMONTH 03/12/15 07/16/21 02/08/15 Previous Rx's Medication Instructions Recorded Last Taken Type Albuterol Mdi (or & Nicu Only) 2 puff IH QID PRN #1 inhalation 02/06/16 Unknown Rx [ProAir HFA Inhaler] amLODIPine 10 mg PO DAILY #30 tab 02/15/16 Unknown Rx lisinopriL [Zestril TAB] 2.5 mg PO QDAY #30 tablet 07/16/21 Unknown Rx Allergies Allergy/AdvReac Type Severity Reaction Status Date / Time aspirin Allergy Anaphylaxis Verified 07/16/21 14:27 Penicillins Allergy Anaphylaxis Verified 07/16/21 14:27 ED Review of Systems ROS: Stated complaint: Psych Eval/SI Other details as noted in HPI Comment: All other systems reviewed and negative Psychiatric: depression, auditory hallucinations, suicidal thoughts ED Past Medical Hx - Past Medical History Hx Hypertension: Yes Hx Psychiatric Treatment: Yes (bipolar, schizoaffective) Hx Asthma: Yes Additional medical history: TB. spinal abcess. SAHNI DISEASE - Surgical History Additional Surgical History: chest tube. drain placed for spinal abcess - Social History Smoking Status: Current Every Day Smoker - Medications Home Medications: Home Medications Medication Instructions Recorded Confirmed Last Taken Type Albuterol Sulfate [Ventolin HFA] 2 puff IH Q4H PRN 03/12/15 07/16/21 3 Days Ago History ~03/09/15 Benztropine [Cogentin] 2 mg PO BID 03/12/15 07/16/21 1 Month Ago History ~02/10/15 Haloperidol Lactate [Haldol] 100 mg IM QMONTH 03/12/15 07/16/21 02/08/15 History Albuterol Mdi (or & Nicu Only) 2 puff IH QID PRN #1 inhalation 02/06/16 07/16/21 Unknown Rx [ProAir HFA Inhaler] amLODIPine 10 mg PO DAILY #30 tab 02/15/16 07/16/21 Unknown Rx lisinopriL [Zestril TAB] 2.5 mg PO QDAY #30 tablet 07/16/21 Unknown Rx ED Physical Exam - General Limitations: No Limitations General appearance: alert, in no apparent distress - Head Head exam: Present: normal inspection - Eye Eye exam: Present: normal appearance Pupils: Present: normal accommodation - ENT ENT exam: Present: normal exam, normal orophraynx, mucous membranes moist - Neck Neck exam: Present: normal inspection - Respiratory Respiratory exam: Present: normal lung sounds bilaterally. Absent: respiratory distress, accessory muscle use - Cardiovascular Cardiovascular Exam: Present: regular rate, normal rhythm, normal heart sounds - GI/Abdominal GI/Abdominal exam: Present: soft. Absent: tenderness - Neurological Exam Neurological exam: Present: alert, oriented X3 - Psychiatric Psychiatric exam: Present: normal mood, suicidal ideation - Skin Skin exam: Present: warm, normal color ED Course Vital Signs 09/15/21 09/16/21 09/16/21 13:29 04:41 04:43 Temperature 97.9 F 98.8 F Pulse Rate 99 H 66 Respiratory 20 16 Rate Blood Pressure 174/106 Blood Pressure 189/94 [Right] O2 Sat by Pulse 100 97 97 Oximetry 09/16/21 09/16/21 10:16 14:36 Temperature 97.6 F Pulse Rate 89 Respiratory 20 Rate Blood Pressure Blood Pressure 162/87 [Right] O2 Sat by Pulse 99 98 Oximetry - Reevaluation(s) Reevaluation #1: 09/16/21 07:36 here with auditory hallucinations with no plan at this point-- will check routine psych labs including Thyroid profile and UDS and have mental health consulted-- ED Medical Decision Making - Lab Data Result diagrams: 09/16/21 04:23 09/16/21 04:23 Critical care attestation.: If time is entered above; I have spent that time in minutes in the direct care of this critically ill patient, excluding procedure time. ED Disposition Clinical Impression: Suicide ideation Schizoaffective disorder Qualifiers: Schizoaffective disorder type: unspecified Qualified Code(s): F25.9 - Schizoaffective disorder, unspecified Disposition: 01 HOME / SELF CARE / HOMELESS Is pt being admited?: No Does the pt Need Aspirin: No Condition: Stable Referrals: PRIMARY CARE, [Primary Care Provider] - 3-5 Days
[2021-09-16 07:43] LABS: Cocaine Screen,Urine Positive
--- NOTE | 2021-09-16 11:50 | Consultation ---
History of Present Illness - Reason for Consult Consult date: 09/16/21 Reason for consult: mental health evaluation - History of Present Psychiatric Illness HPI: Mr. Andrade is a 50-year-old male with a history of anxiety and depression who now presents with suicidal ideation started couple of days ago progressively getting worse. Patient reports that he keep hearing words instructing him to hurt himself. He denies having any plan or method to killing himself. Patient denies any fall or trauma to the brain. Patient also mentioned that he has not been taking his medication including antihypertensive lisinopril. No other modifying or associated factors reported. The patient is a 50 year old male with history of anxiety and schizoaffective disorder who presents to the ED with suicidal ideation. The patient was seen today. He is calm, alert and oriented x3. He reports ongoing suicidal ideation x3 days. He states he has been off his psychotropic meds for the last 3 months; he reports that he started back working and did not have time to see a psychiatrist. He reports suicidal ideation with no plan and commanding auditory hallucinations voices " telling me to hurt myself." PAST PSYCHIATRIC HISTORY: Diagnoses: Schizoaffective, anxiety Suicide attempts or Self-harm behavior: Yes Prior psychiatric hospitalizations:Yes Substance Abuse history: Denies Previous psychiatric medications tried: Cymbalta, Depakote, Haldol Outpatient treatment: Unknown PAST MEDICAL HISTORY: None reported or document Family Psychiatric History: None reported or documented SOCIAL HISTORY Marital Status: Living Arrangements: Lives with alone Employment Status:employed Access to guns/weapons: Denies Education:12th grade History of Abuse:Denies Legal History: Unknown REVIEW OF SYSTEMS Constitutional: Negative for weight loss ENT: Negative for stridor Respiratory: Negative for cough or hemoptysis All other systems reviewed and are negative MENTAL STATUS EXAMINATION General Appearance and Behavior: Age appropriate, wearing appropriate clothes, cooperative, polite with questioning, good eye contact Cooperation: cooperative Psychomotor Behavior: Psychomotor normal Mood:Depressed Affect and affective range: congruent with stated mood Thought Process: Goal directed Thought Content: Suicidal, hallucinations Speech: Normal Suicidal Ideation: Yes Homicidal Ideation: Denies Hallucination: Auditory Delusions: None elicited Impulse Control: Limited Insight and Judgment: Limited Memory: limited Attention:attentive Orientation: Alert and oriented x3 Diagnoses: Schizoaffective disorder Treatment Plan Continue home meds Haldol 5mg po Qam Haldol 10mg po QHS Depakote 250mg po BID Cymbalta 30mg po daily Medical: per primary Sitter: defer to primary Disposition: Do not recommend acute psychiatric inpatient treatment. Will sign off. Thanks Case staffed with Dr. Reyna Medications and Allergies Medications and Allergies Allergies Allergy/AdvReac Type Severity Reaction Status Date / Time aspirin Allergy Anaphylaxis Verified 07/16/21 14:27 Penicillins Allergy Anaphylaxis Verified 07/16/21 14:27 Home Medications Medication Instructions Recorded Confirmed Last Taken Type Albuterol Sulfate [Ventolin HFA] 2 puff IH Q4H PRN 03/12/15 07/16/21 3 Days Ago History ~03/09/15 Benztropine [Cogentin] 2 mg PO BID 03/12/15 07/16/21 1 Month Ago History ~02/10/15 Haloperidol Lactate [Haldol] 100 mg IM QMONTH 03/12/15 07/16/21 02/08/15 History Albuterol Mdi (or & Nicu Only) 2 puff IH QID PRN #1 inhalation 02/06/16 07/16/21 Unknown Rx [ProAir HFA Inhaler] amLODIPine 10 mg PO DAILY #30 tab 02/15/16 07/16/21 Unknown Rx lisinopriL [Zestril TAB] 2.5 mg PO QDAY #30 tablet 07/16/21 Unknown Rx Active Meds: Active Medications Amlodipine Besylate (Amlodipine 10 Mg Tab) 10 mg PO DAILY DEXTER Mental Status Exam - Vital signs Last Vital Signs Temp 98.8 F 09/16/21 04:41 Pulse 66 09/16/21 04:41 Resp 16 09/16/21 04:41 BP 189/94 09/16/21 04:41 Pulse Ox 99 09/16/21 10:16 Results Result Diagrams: 09/16/21 04:23 09/16/21 04:23 Abnormal lab results 09/16/21 09/16/21 09/16/21 Range/Units 04:23 04:23 04:23 [place] % (Auto) (0.0-7.3) % BUN 8 L (9-20) mg/dL Salicylates < 0.3 L (2.8-20.0) mg/dL Acetaminophen 5.0 L (10.0-30.0) ug/mL 09/16/21 Range/Units 04:23 [place] % (Auto) 14.8 H (0.0-7.3) % BUN (9-20) mg/dL Salicylates (2.8-20.0) mg/dL Acetaminophen (10.0-30.0) ug/mL All other labs normal.
[2021-09-16] MEDS ORDERED: amLODIPine 10 MG TAB PO SCH (12:00)
[2021-09-16] MEDS ORDERED: DULoxetine 30 MG CAP PO SCH (12:00)
[2021-09-16] MEDS ORDERED: DIVALPROEX DR 250 MG TAB PO SCH (12:00)
[2021-09-16] MEDS ORDERED: HALOPERIDOL 5 MG TAB PO SCH ×2 (12:00→22:00)
[2021-09-16 18:37] VITALS: BP 162/87
== END 2021-09-16 18:38 | disposition home or self-care (01) ==
LOC: ED 13:27 → EEVIPCON 13:27 → ED 09-16 18:38
DX: R45.851 Suicidal ideations (principal); F25.0 Schizoaffective disorder, bipolar type; I10 Essential (primary) hypertension; J45.909 Unspecified asthma, uncomplicated; A15.9 Respiratory tuberculosis unspecified; Z98.890 Other specified postprocedural states; F17.290 Nicotine dependence, other tobacco product, uncomplicated; Z88.0 Allergy status to penicillin; Z88.6 Allergy status to analgesic agent
CPT/HCPCS: 36415; 80048; 80307; 80320; 81001; 85025; 99284; G0480